=== PATIENT | female | born 1975 | race Caucasian/White ===

== ENCOUNTER 2020-01-08 11:11 | Emergency (ER) | payer MEDICARE, OTHER ==
[~2020-01-08] VITALS: Ht 157.5 cm; Wt 7.0 kg
--- NOTE | 2020-01-08 11:22 | NUR ---
NA X1
--- NOTE | 2020-01-08 11:46 | NUR ---
Pt ambulated back to room, changed into gown, sitting on bed, Dr Alejo at bedside performing assessment and plan of care. NAD, denies additional needs, WCTM.
[2020-01-08] MEDS ORDERED: TOPIRAMATE 100 MG TABLET PO ONE (12:00)
[2020-01-08] MEDS ORDERED: QUETIAPINE 100MG TABLET PO ONE (12:00)
[2020-01-08] MEDS ORDERED: QUET200T4 PO (12:02)
[2020-01-08] MEDS ORDERED: TOPI200T25 PO (12:02)
[2020-01-08] MEDS ORDERED: TRAZ50TA66 PO (12:02)
[2020-01-08 12:49] VITALS: BP 110/70
--- NOTE | 2020-01-08 12:51 | NUR ---
D/C paperwork reviewed and fully read through by pt.
== END 2020-01-08 12:52 | disposition home or self-care (01) ==
LOC: ED 12:11
DX: L03.312 Cellulitis of back [any part except buttock and flank] (principal); Z76.0 Encounter for issue of repeat prescription
CPT/HCPCS: 99283